=== PATIENT | female | born 1975 | race Caucasian/White ===

== ENCOUNTER → 2021-06-13 16:20 | Outpatient (CLI) | payer OTHER, SELFPAY ==
[2021-06-13 17:11] LABS: COVID19 -Nasal RAPID Negative (Negative)
== END ==
PROVIDERS: PCP Family Medicine; Referring Provider Family Medicine; Visit Provider Family Medicine
DX: Z20.822 Contact with and (suspected) exposure to COVID-19 (principal)
CPT/HCPCS: 87635

== ENCOUNTER → 2024-08-27 11:57 | Outpatient (CLI) | payer OTHER, SELFPAY ==
[2024-08-27 13:00] LABS: Add Manual Diff / Slide Review NO; Basophils Absolute Auto 0 /uL (0-100); Basophils Percent Auto 0.7 % (0-2); Eosinophils Absolute Auto 100 /uL (0-450); Eosinophils Percent Auto 1.1 % (2-4); Hematocrit 43.1 % (36-46); Hemoglobin 14.7 g/dL (12.0-16.0); Lymphocytes Absolute Auto 1900 /uL (1100-4500); Lymphocytes Percent Auto 26.9 % (25-40); Mean Corpuscular HGB Conc 34.1 % (30-36); Mean Corpuscular Hemoglobin 30.6 PG (26-34); Mean Corpuscular Volume 89.8 fL (80-100); Monocytes Absolute Auto 400 /uL (0-900); Monocytes Percent Auto 5.1 % (3-14); Neutrophils Absolute Auto 4800 /uL (1500-7000); Neutrophils Percent Auto 66.2 % (50-75); Platelet Count 353 X10^3/uL (150-400); Red Cell Distribution Width 13.2 % (11.6-14.8); White Blood Cell Count 7.2 X10^3/uL (4.5-11.0)
[2024-08-27 13:11] LABS: HEMOLYSIS < 15 (0-50); Iron 115 ug/dL (37-170)
[2024-08-27 13:13] LABS: Alanine Aminotransferase 30 IU/L (<35); Albumin 4.3 g/dL (3.5-5.0); Albumin Globulin Ratio 1.3 (1.0-2.8); Alkaline Phosphatase 91 U/L (38-126); Aspartate Aminotransferase 22 IU/L (14-36); BUN Creatinine Ratio 23.5 (6-22); Bilirubin Total 0.5 mg/dL (0.2-1.3); Blood Urea Nitrogen 12 mg/dL (7-17); Calcium 10.6 mg/dL (8.4-10.2); Carbon Dioxide 13 mmol/L (22-32); Chloride 105 mmol/L (98-107); Cholesterol 199 mg/dL (140-199); Estimated Glomerular Filt Rate > 60 mL/min (>60); Globulin 3.3 g/dL (1.7-4.1); Glucose 332 mg/dL (70-100); HDL Cholesterol 37 mg/dL (40-60); HEMOLYSIS < 15 (0-50); LDL Cholesterol Calculated 120 mg/dL (<100); Potassium 4.8 mmol/L (3.4-5.1); Sodium 137 mmol/L (137-145); Total Protein 7.6 g/dL (6.3-8.2); Triglycerides 211 mg/dL (35-150)
[2024-08-27 13:19] LABS: Hemoglobin A1C% w Est Avg Glu 12.1 % (4.0-6.0)
[2024-08-27 13:22] LABS: Percent Iron Saturation 38 % (15-50); Total Iron Binding Capacity 306 ug/dL (265-497); Transferrin 265 mg/dL (206-381)
[2024-08-27 13:28] LABS: Free T4, Direct Thyroxine 1.11 ng/dL (0.78-2.19)
[2024-08-27 13:42] LABS: Thyroid Stimulating Hormone 1.38 uIU/mL (0.47-4.68)
[2024-08-27 13:48] LABS: Ferritin 282 ng/mL (11-264)
[2024-08-27 15:29] LABS: Follicle Stimulating Hormone 23.2 mIU/mL
[2024-08-27 15:45] LABS: Estradiol, Total 22.3 pg/mL
== END ==
PROVIDERS: PCP Family Medicine; Referring Provider Obstetrics & Gynecology; Visit Provider Obstetrics & Gynecology
DX: N95.1 Menopausal and female climacteric states (principal)
CPT/HCPCS: 36415; 80053; 80061; 82670; 82728; 83001; 83036; 83540; 83550; 84402; 84403; 84439; 84443; 85025

== ENCOUNTER → 2024-08-28 14:41 | Outpatient (CLI) | payer OTHER, SELFPAY ==
[2024-08-28 15:29] LABS: Cancer Antigen 125 6.1 U/mL (0-35)
== END ==
PROVIDERS: PCP Family Medicine; Visit Provider Obstetrics & Gynecology
DX: Z12.73 Encounter for screening for malignant neoplasm of ovary (principal)
CPT/HCPCS: 86304

== ENCOUNTER → 2024-12-24 11:51 | Outpatient (CLI) | payer OTHER, SELFPAY ==
[2024-12-24 13:16] LABS: Hemoglobin A1C% w Est Avg Glu 7.2 % (4.0-6.0)
[2024-12-24 13:42] LABS: Alanine Aminotransferase 38 IU/L (<35); Albumin 4.1 g/dL (3.5-5.0); Albumin Globulin Ratio 1.2 (1.0-2.8); Alkaline Phosphatase 57 U/L (38-126); Blood Urea Nitrogen 14 mg/dL (7-17); Calcium 9.9 mg/dL (8.4-10.2); Carbon Dioxide 27 mmol/L (22-32); Chloride 106 mmol/L (98-107); Cholesterol 143 mg/dL (140-199); Estimated Glomerular Filt Rate > 60 mL/min (>60); Globulin 3.3 g/dL (1.7-4.1); Glucose 90 mg/dL (70-99); HDL Cholesterol 50 mg/dL (40-60); HEMOLYSIS < 15 (0-50); Potassium 5.2 mmol/L (3.4-5.1); Sodium 138 mmol/L (137-145); Total Protein 7.4 g/dL (6.3-8.2); Triglycerides 66 mg/dL (35-150)
[2024-12-24 14:42] LABS: Microalbumi Creatinin Ratio Ur 28.0 ug/mg CR (<30)
== END ==
PROVIDERS: PCP Family Medicine; Referring Provider Nurse Practitioner Family; Visit Provider Nurse Practitioner Family
DX: E11.65 Type 2 diabetes mellitus with hyperglycemia (principal); Z79.4 Long term (current) use of insulin
CPT/HCPCS: 36415; 80053; 80061; 82043; 82570; 83036